=== PATIENT | female | born 1960 | race Caucasian/White ===

== ENCOUNTER 2017-10-20 09:27 | Emergency (ER) | payer OTHER ==
[~2017-10-20] VITALS: Ht 170.2 cm; Wt 74.6 kg
[2017-10-20 09:38] VITALS: BP 157/75; PULSE 68; RESP 16; TEMP 98.6; O2SAT 99
[2017-10-20] MEDS ORDERED: LEVO112T2 PO (09:49)
[2017-10-20] MEDS ORDERED: ALPR0.25 PO (09:49)
[2017-10-20] MEDS ORDERED: IBUP1TAB7 PO (10:02)
[2017-10-20] MEDS ORDERED: ROBA750T PO (10:02)
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
[2017-10-20] MEDS ORDERED: KETOROLAC TROMETHAMINE 60 MG/2 ML (IM) VIAL IM ONE (10:15)
[2017-10-20] MEDS ORDERED: ORPHENADRINE INJ 60 MG/2 ML AMP IM ONE (10:15)
== END 2017-10-20 10:20 | disposition home or self-care (01) ==
LOC: PHEFT 09:27
DX: S39.012A Strain of muscle, fascia and tendon of lower back, initial encounter (principal); Z79.899 Other long term (current) drug therapy; X50.1XXA Overexertion from prolonged static or awkward postures, initial encounter; Y92.814 Boat as the place of occurrence of the external cause
CPT/HCPCS: 96372; 99283; J1885; J2360